=== PATIENT | female | born 1985 | race Two or more races ===

== ENCOUNTER → 2016-12-17 | Outpatient (REF) | payer BC | LOC: M SFHCWAGY 12:28 | PROVIDERS: ATTEND Nurse Practitioner Women's Health | DX: Z12.4 Encounter for screening for malignant neoplasm of cervix (principal) ==

== ENCOUNTER → 2016-12-29 | Outpatient (CLI) | payer BC ==
[~2016-12-29] VITALS: Ht 170.2 cm; Wt 79.7 kg
[~2016-12-29] MED LIST: LIDOCAINE 2% INJ 100 MG/5 ML SDV (FOR ANES.) As Ordered ONE; NS 1,000 ML IV ONE; PROPOFOL 200 MG/20 ML VIAL As Ordered ONE; RANI150T PO; SERT50TA PO; TRAZ50TA4 PO
--- NOTE | 2016-12-29 15:46 | ROOR ---
Patient Name: Lashonda Das Procedure Date: 12/29/2016 3:30 PM Date of : 1985 Age: 31 Room: [facility] Gender: Female Note Status: Finalized Procedure: Upper GI endoscopy Indications: Heartburn, Resolved on life style/habit change Providers: Rich NORIEGA MD Referring MD: Nay SANTANA NP Requesting Provider: Medicines: Monitored Anesthesia Care Complications: No immediate complications. Procedure: Pre-Anesthesia Assessment: - The heart rate, respiratory rate, oxygen saturations, blood pressure, adequacy of pulmonary ventilation, and response to care were monitored throughout the procedure. The Endoscope was introduced through the mouth, and advanced to the second part of duodenum. The upper GI endoscopy was accomplished without difficulty. The patient tolerated the procedure well. Findings: The esophagus was normal. The stomach was normal. The examined duodenum was normal. Impression: - Normal esophagus. - Normal stomach. - Normal examined duodenum. - No specimens collected. Recommendation: - Observe patient's clinical course. - Follow an antireflux regimen. Rich Noriega MD Rich NORIEGA MD 12/29/2016 3:45:54 PM This report has been signed electronically. Number of Addenda: 0 Note Initiated On: 12/29/2016 3:30 PM Estimated Blood Loss: Estimated blood loss: none.
--- NOTE | 2016-12-29 15:59 | ROOR ---
Patient Name: Lashonda Das Procedure Date: 12/29/2016 3:31 PM Date of : 1985 Age: 31 Room: [facility] Gender: Female Note Status: Finalized Procedure: Colonoscopy Indications: Screening in patient at increased risk: Colorectal cancer in father before age 60, (50) Providers: Rich NORIEGA MD Referring MD: Nay SANTANA NP Requesting Provider: Medicines: Monitored Anesthesia Care Complications: No immediate complications. Procedure: Pre-Anesthesia Assessment: - The heart rate, respiratory rate, oxygen saturations, blood pressure, adequacy of pulmonary ventilation, and response to care were monitored throughout the procedure. The Colonoscope was introduced through the anus and advanced to 4 cm into the ileum. The colonoscopy was performed without difficulty. The patient tolerated the procedure well. The quality of the bowel preparation was good. Findings: The perianal and digital rectal examinations were normal. The colon (entire examined portion) appeared normal. The terminal ileum appeared normal. Impression: - The entire colon is normal. - The examined portion of the ileum was normal. - No specimens collected. Recommendation: - Repeat colonoscopy in 5 years for screening purposes. Rich Noriega MD Rich NORIEGA MD 12/29/2016 3:59:09 PM This report has been signed electronically. Number of Addenda: 0 Note Initiated On: 12/29/2016 3:31 PM Estimated Blood Loss: Estimated blood loss: none.
[2016-12-29 16:25] VITALS: BP 114/75
== END | disposition home or self-care (01) ==
LOC: M OPP 13:55
PROVIDERS: ATTEND Internal Medicine Gastroenterology
DX: Z12.11 Encounter for screening for malignant neoplasm of colon (principal); Z80.0 Family history of malignant neoplasm of digestive organs; R12 Heartburn; F32.9 Major depressive disorder, single episode, unspecified; G43.909 Migraine, unspecified, not intractable, without status migrainosus; K21.9 Gastro-esophageal reflux disease without esophagitis; Z80.8 Family history of malignant neoplasm of other organs or systems; Z91.018 Allergy to other foods; Z79.899 Other long term (current) drug therapy
CPT/HCPCS: 43235; G0105

== ENCOUNTER → 2017-02-28 | Outpatient (REF) | payer BC ==
[~2017-02-28] MED LIST changes: -LIDOCAINE 2% INJ 100 MG/5 ML SDV (FOR ANES.) As Ordered ONE; -NS 1,000 ML IV ONE; -PROPOFOL 200 MG/20 ML VIAL As Ordered ONE; +TRAZ50TA11 PO; -TRAZ50TA4 PO
== END ==
LOC: M SFHCLERA 14:43
PROVIDERS: ATTEND Nurse Practitioner Family
DX: J02.9 Acute pharyngitis, unspecified (principal)

== ENCOUNTER → 2017-04-01 | Outpatient (REF) | payer BC ==
[2017-04-01 14:33] LABS: CONTROL LINE MONO INT CTR LINE PRESENT
== END ==
LOC: M LAB REF 13:35
PROVIDERS: ATTEND Nurse Practitioner Family
DX: J02.0 Streptococcal pharyngitis (principal)

== ENCOUNTER → 2017-10-29 | Outpatient (REF) | payer BC ==
[2017-10-29 21:30] LABS: CHLAMYDIA DNA AMPLIFICATION NEGATIVE (NEGATIVE); GC DNA AMPLIFICATION NEGATIVE (NEGATIVE)
[2017-10-30 10:52] LABS: HIV 1&2 SCREEN CENTAUR NEGATIVE (NEGATIVE)
== END ==
LOC: M LAB REF 17:06
DX: Z72.51 High risk heterosexual behavior (principal)

== ENCOUNTER → 2018-01-06 | Outpatient (CLI) | payer OTHER | LOC: M WUC 09:11 | DX: M25.542 Pain in joints of left hand (principal) | CPT/HCPCS: 73130 ==

== ENCOUNTER → 2018-04-23 | Outpatient (REF) | payer OTHER ==
[2018-04-23 22:30] LABS: CHLAMYDIA DNA AMPLIFICATION NEGATIVE (NEGATIVE); GC DNA AMPLIFICATION NEGATIVE (NEGATIVE)
== END ==
LOC: M SFHCWAGY 16:58
DX: Z11.3 Encounter for screening for infections with a predominantly sexual mode of transmission (principal)

== ENCOUNTER → 2018-04-23 | Outpatient (REF) | payer OTHER | LOC: M SFHCWAGY 16:00 | DX: Z12.4 Encounter for screening for malignant neoplasm of cervix (principal); Z11.3 Encounter for screening for infections with a predominantly sexual mode of transmission ==

== ENCOUNTER → 2018-07-08 | Outpatient (REF) | payer OTHER ==
[2018-07-08 14:44] LABS: CHLAMYDIA DNA AMPLIFICATION NEGATIVE (NEGATIVE); GC DNA AMPLIFICATION NEGATIVE (NEGATIVE)
== END ==
LOC: M LAB REF 12:04
DX: R31.9 Hematuria, unspecified (principal); N76.0 Acute vaginitis
CPT/HCPCS: 87205

== ENCOUNTER → 2020-06-22 | Outpatient (REF) | payer OTHER ==
[~2020-06-22] MED LIST changes: +SERT-141 PO; -SERT50TA PO; +TRAZ-252 PO; -TRAZ50TA11 PO
== END ==
LOC: M SFHCWAGY 17:08
PROVIDERS: ATTEND Nurse Practitioner Women's Health
DX: Z12.4 Encounter for screening for malignant neoplasm of cervix (principal); Z01.419 Encounter for gynecological examination (general) (routine) without abnormal findings

== ENCOUNTER → 2020-07-12 | Outpatient (CLI) | payer OTHER ==
--- NOTE | 2020-07-24 09:52 | REP ---
INDICATION: Z31.69/Z31.9 INFERTILITY MGMT. Repeat dictation. This study was acquired on 12 July 2020 and is presented to me for repeat dictation on 24 July 2020. COMPARISON: None. TECHNIQUE: Transabdominal and transvaginal scanning were performed. FINDINGS: Uterine dimensions are normal at 8.4 x 2.4 x 5.1 cm. Endometrial echo is 0.3 cm thick and centrally placed. No free fluid is seen in the cul-de-sac. Visualized bladder zayas are smooth. Small nabothian cysts are present. The right ovary has dimensions of 3.1 x 2.1 x 3.1 cm. It's Doppler flow is normal with a resistive index of 0.47. There is a complex heterogeneous and hyperechoic process in the left adnexa. Little normal ovarian tissue is seen. Possible dermoid. The complex process in the left adnexa measures 5.8 x 4.8 x 3.3 cm. Urinary bladder zayas are smooth on transabdominal imaging. Calculated bladder volume 501 mL. IMPRESSION: Complex process in the left ovary possible dermoid cyst. Very little normal appearing ovarian tissue seen. Recommend confirmation and further evaluation with pelvic MRI study. Unremarkable uterus and right ovary.. <Electronically signed by Daniel Zhang > 07/24/20 [id number]
== END ==
LOC: M WHC 14:56
PROVIDERS: ATTEND Nurse Practitioner Women's Health
DX: Z31.69 Encounter for other general counseling and advice on procreation (principal)

== ENCOUNTER → 2020-08-06 | Outpatient (CLI) | payer OTHER ==
[~2020-08-06] MED LIST changes: +PROHANCE 279.3MG/ML 15ML VIAL As Ordered ONE
--- NOTE | 2020-08-07 08:23 | REP ---
INDICATION: ADNEXAL MASS. Possible dermoid cyst left ovary on recent sonography. COMPARISON: Comparison pelvic sonography July 12, 2020. TECHNIQUE: Using a phased array surface coil, small fliyh-zd-ziei imaging was acquired using T2 weighted scans in the axial, coronal, and sagittal imaging planes. Small wbhhw-xu-jqab diffusion-weighted sequences are acquired. Small ocnuu-se-drhx axial T1 weighted scans are acquired dynamically before and after the intravenous administration of 15 mL of ProHance. Imaging is reviewed using the [employer] computer-aided detection system. FINDINGS: There is a heterogeneous mass in the left adnexa measuring 3.9 x 5.3 x 4.6 cm in overall dimension. This contains areas of low T1 and high T1 signal intensity. The high T1 signal intensity areas are suppressed on fat suppression images consistent with fat content. There are linear low T1 low T2 signal intensity components. The lesion has well-defined margin or wall. The wall of the cyst enhances in a thin linear fashion. There is some internal linear enhancement as well. No other abnormal contrast enhancement is visible. There is some normal ovarian tissue visualized anterior to the left ovarian lesion. The right ovary has a normal appearance. There is no evidence of free fluid. Uterus is normal in size. There are small nabothian cysts in the cervix. Endometrium is unremarkable. No pelvic adenopathy is seen. IMPRESSION: 5.3 cm dermoid cyst left ovary. Otherwise negative. <Electronically signed by Daniel Zhang > 08/07/20 0832
== END ==
LOC: M RAD 17:34
PROVIDERS: ATTEND Nurse Practitioner Women's Health
DX: N83.202 Unspecified ovarian cyst, left side (principal); N94.89 Other specified conditions associated with female genital organs and menstrual cycle
CPT/HCPCS: 72197; A9576

== ENCOUNTER → 2020-09-18 | Outpatient (REF) | payer OTHER ==
[~2020-09-18] MED LIST changes: -PROHANCE 279.3MG/ML 15ML VIAL As Ordered ONE
[2020-09-18 15:57] LABS: HEMOGLOBIN A1c 4.9 %
[2020-09-18 16:03] LABS: FREE THYROXINE INDEX 2.1 % (1.3-4.8); HCG, SERUM QUANTITATIVE < 1.0 MIU/ML; LDH LACTATE DEHYDROGENASE 163 U/L (84-246); T UPTAKE 29 % (30-39); THYROXINE (T4) 7.1 UG/DL (4.5-12.0)
[2020-09-18 16:06] LABS: ESTRADIOL 24.8 PG/ML; LUTEINIZING HORMONE 8.7 mIU/mL
[2020-09-18 16:07] LABS: FOLLICLE STIMULATING HORMONE 8.1 mIU/mL
== END ==
LOC: M PLALAB 13:46
PROVIDERS: ATTEND Obstetrics & Gynecology
DX: N94.89 Other specified conditions associated with female genital organs and menstrual cycle (principal); N97.9 Female infertility, unspecified

== ENCOUNTER → 2020-09-25 | Outpatient (CLI) | payer OTHER ==
[~2020-09-25] MED LIST changes: +ISOVUE-300 61% 50ML VIAL As Ordered ONE; +ISOVUE-370 76% 100ML VIAL As Ordered ONE
--- NOTE | 2020-09-25 16:57 | REP ---
INDICATION: INFERTILITY. COMPARISON: None. TECHNIQUE: The endometrium was cannulated and contrast was injected by the attending shell reprint operator Dr. Ramirez. Fluoroscopic spot films were acquired by [facility], under the direct supervision of Dr. Zhang. Images reviewed prior with Dr. Zhang to dictation. FINDINGS: Fluoroscopy spot radiographs document filling of a normal endometrial cavity. There is normal isthmic and ampullary fallopian tube opacification, and bilateral tubal patency was documented. IMPRESSION: Normal hysterosalpingogram with bilateral tubal patency documented. 0.4 minutes of fluoroscopy time was utilized for this procedure. Some fluoroscopic images are performed with last image hold technology. These images require no additional radiation. <Electronically signed by Sarah Botello > 09/25/20 1644 <Electronically signed by Daniel Zhang > 09/25/20 [id number]
== END ==
LOC: M RADPRO 11:34
PROVIDERS: ATTEND Obstetrics & Gynecology
DX: N83.202 Unspecified ovarian cyst, left side (principal); Z32.02 Encounter for pregnancy test, result negative; N97.9 Female infertility, unspecified
CPT/HCPCS: 58340; 74740; Q9967

== ENCOUNTER → 2020-10-04 | Outpatient (CLI) | payer OTHER ==
[~2020-10-04] MED LIST changes: -ISOVUE-300 61% 50ML VIAL As Ordered ONE; -ISOVUE-370 76% 100ML VIAL As Ordered ONE
--- NOTE | 2020-10-04 09:14 | REP ---
INDICATION: N83.202 LT OVARIAN CYST. COMPARISON: MR 08/06/2020, ultrasound 07/12/2020 TECHNIQUE: transabdominal and endovaginal probes utilized. FINDINGS: Bladder measures a 10.1 x 6.5 by 9 cm. Uterus is anteverted and measures 7.7 x 3.2 x 4.9 cm and is homogeneous in echotexture of its myometrium. There is a central endometrial stripe with a thickness of 5.9 mm. No uterine mass or contour abnormality. The right ovary is 3.6 x 2.4 x 2.3 cm. Within it is a dominant follicle of 1.4 x 1.2 x 1 cm. This has slightly irregular margins that may reflect collapsing follicle. There are other subcentimeter follicles evident. No adjacent free fluid. Normal color flow into the right ovary with normal Doppler tracing. The left ovary is enlarged at 6.3 x 3.8 x 4.5 cm. A small residual of a normal ovarian tissue seen with the mixed echogenic focus with hyperechoic areas and shadowing also noted with this area mass measuring 5.2 x 3.5 x 4.5 cm. There is no adjacent free fluid. Blood flow to the ovary maintained on color imaging. IMPRESSION: 1. Complex mostly fatty mass 5.2 x 3.5 x 4.5 cm left adnexa consistent with a dermoid cyst in the left ovary. No adjacent free fluid. Blood flow seen to the ovary and mass. 2. Dominant follicle right ovary 1.4 x 1.2 cm with slightly irregular contour suggesting involution. 3. Uterus endometrial stripe unremarkable. No pelvic or adnexal free fluid. <Electronically signed by Home Berkowitz > 10/04/20 0900
== END ==
LOC: M WHC 06:33
PROVIDERS: ATTEND Obstetrics & Gynecology
DX: N83.202 Unspecified ovarian cyst, left side (principal)

== ENCOUNTER → 2021-06-25 | Outpatient (REF) | payer OTHER | LOC: M SFHCWAGY 13:10 | PROVIDERS: ATTEND Nurse Practitioner Women's Health | DX: Z12.4 Encounter for screening for malignant neoplasm of cervix (principal); Z01.419 Encounter for gynecological examination (general) (routine) without abnormal findings ==

== ENCOUNTER → 2021-07-24 | Outpatient (REF) | LOC: M LABSMTC 13:06 | PROVIDERS: ATTEND Pediatrics | DX: Z20.828 Contact with and (suspected) exposure to other viral communicable diseases (principal) ==

== ENCOUNTER → 2021-10-30 | Outpatient (CLI) | payer OTHER ==
[2021-10-30 11:50] LABS: HEMATOCRIT 38.9 % (36.0-47.0); HEMOGLOBIN 13.4 g/dl (12.0-15.5); MEAN CORPUSCULAR HGB CONC 34.4 g/dl (32.0-36.5); PLATELET COUNT, AUTOMATED 344 10^3/uL (150-450); RED BLOOD COUNT 4.32 10^6/uL (4.00-5.40); WHITE BLOOD COUNT 11.6 10^3/uL (4.0-10.0)
[2021-10-30 12:59] LABS: HEPATITIS C VIRUS ABY INDEX 0.2 INDEX (<0.8); HIV 1&2 SCREEN CENTAUR NEGATIVE (NEGATIVE)
[2021-10-30 13:13] LABS: GC DNA AMPLIFICATION NEGATIVE (NEGATIVE)
== END ==
LOC: M PLALAB 08:44
PROVIDERS: ATTEND Specialist
DX: Z34.01 Encounter for supervision of normal first pregnancy, first trimester (principal); Z36.89 Encounter for other specified antenatal screening

== ENCOUNTER → 2021-12-23 | Outpatient (CLI) | payer OTHER | LOC: M WHC 07:10 | PROVIDERS: ATTEND Advanced Practice Midwife | DX: Z34.82 Encounter for supervision of other normal pregnancy, second trimester (principal); Z3A.19 19 weeks gestation of pregnancy ==

== ENCOUNTER → 2022-01-17 | Outpatient (CLI) | payer OTHER | LOC: M WHC 14:36 | PROVIDERS: ATTEND Obstetrics & Gynecology | DX: O34.82 Maternal care for other abnormalities of pelvic organs, second trimester (principal); Z3A.23 23 weeks gestation of pregnancy ==

== ENCOUNTER → 2022-02-06 | Outpatient (CLI) | payer OTHER ==
[2022-02-06 13:57] LABS: HEMATOCRIT 37.2 % (36.0-47.0); MEAN CORPUSCULAR HGB CONC 32.3 g/dl (32.0-36.5); PLATELET COUNT, AUTOMATED 316 10^3/uL (150-450); WHITE BLOOD COUNT 12.3 10^3/uL (4.0-10.0)
== END ==
LOC: M PLALAB 08:48
PROVIDERS: ATTEND Obstetrics & Gynecology
DX: Z34.92 Encounter for supervision of normal pregnancy, unspecified, second trimester (principal); Z36.89 Encounter for other specified antenatal screening

== ENCOUNTER → 2022-04-21 | Outpatient (REF) | payer OTHER | LOC: M SFHCWAGY 16:47 | PROVIDERS: ATTEND Advanced Practice Midwife | DX: Z36.85 Encounter for antenatal screening for Streptococcus B (principal) ==

== ENCOUNTER → 2022-04-29 | Outpatient (CLI) | payer OTHER | LOC: M WHC 09:59 | PROVIDERS: ATTEND Advanced Practice Midwife | DX: O26.849 Uterine size-date discrepancy, unspecified trimester (principal); Z3A.37 37 weeks gestation of pregnancy ==

== ENCOUNTER → 2022-07-24 | Outpatient (CLI) | payer OTHER ==
[~2022-07-24] MED LIST changes: +ACET-683 PO; +IBUP-1022 PO; +PRENTAB9 PO
== END ==
LOC: M WHC 12:32
PROVIDERS: ATTEND Obstetrics & Gynecology
DX: D27.1 Benign neoplasm of left ovary (principal); N88.8 Other specified noninflammatory disorders of cervix uteri

== ENCOUNTER → 2022-10-20 | Outpatient (REF) | payer OTHER | LOC: M PLALAB 16:17 | PROVIDERS: ATTEND Obstetrics & Gynecology | DX: Z01.419 Encounter for gynecological examination (general) (routine) without abnormal findings (principal) | CPT/HCPCS: 87624; G0123 ==

== ENCOUNTER → 2023-03-02 | Outpatient (REF) | payer OTHER | LOC: M PLALAB 11:15 | PROVIDERS: ATTEND Obstetrics & Gynecology | DX: Z53.9 Procedure and treatment not carried out, unspecified reason (principal) ==

== ENCOUNTER → 2023-03-02 | Outpatient (CLI) | payer OTHER ==
[2023-03-02 15:41] LABS: HEMATOCRIT 38.3 % (36.0-47.0); HEMOGLOBIN 13.3 g/dl (12.0-15.5); MEAN CORPUSCULAR HEMOGLOBIN 31.7 pg (27.0-33.0); MEAN CORPUSCULAR HGB CONC 34.7 g/dl (32.0-36.5); MEAN CORPUSCULAR VOLUME 91.2 fl (80.0-96.0); PLATELET COUNT, AUTOMATED 289 10^3/uL (150-450); WHITE BLOOD COUNT 12.2 10^3/uL (4.0-10.0)
[2023-03-02 16:34] LABS: HIV 1&2 SCREEN NEGATIVE (NEGATIVE)
[2023-03-02 16:42] LABS: HEPATITIS C VIRUS ABY INDEX 0.08 INDEX (<0.8)
[2023-03-02 17:18] LABS: GC DNA AMPLIFICATION NEGATIVE (NEGATIVE)
== END ==
LOC: M PLALAB 11:49
PROVIDERS: ATTEND Obstetrics & Gynecology
DX: Z36.9 Encounter for antenatal screening, unspecified (principal)

== ENCOUNTER → 2023-04-27 | Outpatient (CLI) | payer OTHER | LOC: M WHC 14:26 | PROVIDERS: ATTEND Obstetrics & Gynecology | DX: Z34.92 Encounter for supervision of normal pregnancy, unspecified, second trimester (principal); Z3A.20 20 weeks gestation of pregnancy ==

== ENCOUNTER → 2023-05-14 | Outpatient (CLI) | payer OTHER | LOC: M WHC 10:04 | PROVIDERS: ATTEND Obstetrics & Gynecology | DX: Z36.89 Encounter for other specified antenatal screening (principal) ==

== ENCOUNTER → 2023-06-03 | Outpatient (CLI) | payer OTHER ==
[2023-06-03 17:52] LABS: HEMATOCRIT 33.8 % (36.0-47.0); HEMOGLOBIN 11.4 g/dl (12.0-15.5); MEAN CORPUSCULAR HEMOGLOBIN 31.3 pg (27.0-33.0); MEAN CORPUSCULAR HGB CONC 33.7 g/dl (32.0-36.5); MEAN CORPUSCULAR VOLUME 92.9 fl (80.0-96.0); PLATELET COUNT, AUTOMATED 263 10^3/uL (150-450); RED BLOOD COUNT 3.64 10^6/uL (4.00-5.40); WHITE BLOOD COUNT 14.9 10^3/uL (4.0-10.0)
[2023-06-03 20:20] LABS: GC DNA AMPLIFICATION NEGATIVE (NEGATIVE)
== END ==
LOC: M PLALAB 14:13
PROVIDERS: ATTEND Specialist
DX: Z34.82 Encounter for supervision of other normal pregnancy, second trimester (principal)

== ENCOUNTER → 2023-08-13 | Outpatient (REF) | payer OTHER | LOC: M SFHCWAGY 17:02 | PROVIDERS: ATTEND Obstetrics & Gynecology | DX: Z36.89 Encounter for other specified antenatal screening (principal); Z3A.36 36 weeks gestation of pregnancy ==

== ENCOUNTER 2023-09-01 19:23 | Inpatient (IN) | payer OTHER ==
[~2023-09-01] VITALS: Ht 170.2 cm; Wt 89.3 kg
[2023-09-01] VITALS (13 sets, daily range): BP systolic 95–138; BP diastolic 54–84
[2023-09-01] MEDS ORDERED: CALC500C15 PO (19:41)
[2023-09-01] MEDS ORDERED: HOME MED LIST COMPLETE! XX SCH (21:05)
[2023-09-01 22:15] LABS: HEMATOCRIT 34.3 % (36.0-47.0); HEMOGLOBIN 11.7 g/dl (12.0-15.5); MEAN CORPUSCULAR HEMOGLOBIN 29.7 pg (27.0-33.0); MEAN CORPUSCULAR HGB CONC 34.1 g/dl (32.0-36.5); MEAN CORPUSCULAR VOLUME 87.1 fl (80.0-96.0); PLATELET COUNT, AUTOMATED 284 10^3/uL (150-450); RED BLOOD COUNT 3.94 10^6/uL (4.00-5.40); WHITE BLOOD COUNT 16.5 10^3/uL (4.0-10.0)
[2023-09-01] MEDS ORDERED: LR 500 ML IV PRN (22:20)
[2023-09-01] MEDS ORDERED: ONDANSETRON 4MG 2ML VIAL IV PRN (22:20)
[2023-09-01] MEDS ORDERED: NALOXONE INJ 0.4MG/1ML VIAL IV PRN (22:20)
[2023-09-01] MEDS ORDERED: EPIDURAL/PCA KEYS XX PRN (22:20)
[2023-09-01] MEDS ORDERED: FENTANYL/ROPIVACAINE/NACL BAG 100 ML EPIDURAL SCH (22:20)
[2023-09-01] MEDS ORDERED: diphenhydrAMINE 50MG/ML VIAL IV PRN (22:20)
[2023-09-01] MEDS ORDERED: LACTATED RINGER'S 1000 ML IV STA (22:23)
[2023-09-01] MEDS: LR 1,000 ML IV SCH (22:56)
[2023-09-01] MEDS: ePHEDrine SULFATE 25 MG/5 ML(5MG/ML) SYRINGE IVP PRN ×2 (23:24→23:29)
[2023-09-02] VITALS (21 sets, daily range): BP systolic 90–120; BP diastolic 50–70; O2SAT 97
[2023-09-02] MEDS ORDERED: TRANEXAMIC ACID INJection 1,000 MG in NS 100 ML IV PRN (00:05)
[2023-09-02] MEDS ORDERED: LIDOCAINE 1% MDV 20ML VIAL INFIL PRN (00:05)
[2023-09-02] MEDS ORDERED: OXYTOCIN DRIP 30 UNITS in IV 1 EA IV PRN (00:05)
[2023-09-02] MEDS ORDERED: METHYLERGONOVINE MALEATE 0.2MG/ML 1ML VIAL IM PRN (00:05)
[2023-09-02] MEDS: ePHEDrine SULFATE 25 MG/5 ML(5MG/ML) SYRINGE IVP PRN (00:25)
[2023-09-02] MEDS: LR 1,000 ML IV SCH (03:29)
[2023-09-02] MEDS ORDERED: OXYTOCIN DRIP 30 UNITS in IV 1 EA IV SCH (06:00)
[2023-09-02] MEDS ORDERED: RHOGAM 300MCG (1500IU) INJ IM SCH (06:00)
[2023-09-02] MEDS ORDERED: METHYLERGONOVINE MALEATE 0.2 MG TAB PO PRN (06:00)
[2023-09-02] MEDS ORDERED: MOM 30ML SUSPENSION UDC PO PRN (06:00)
[2023-09-02] MEDS ORDERED: DIBUCAINE 1% OINTMENT 30GM TOP PRN (06:00)
[2023-09-02] MEDS ORDERED: ACETAMINOPHEN 500 MG TAB PO PRN (06:00)
[2023-09-02] MEDS ORDERED: DOCUSATE SODIUM 100MG CAPSULE PO PRN (06:00)
[2023-09-02] MEDS ORDERED: ANUSOL HC CREAM 30GM TOP PRN (06:00)
[2023-09-02] MEDS ORDERED: ACETAMINOPHEN TAB 650MG DOSE (2X325MG) PO PRN (06:00)
[2023-09-02] MEDS ORDERED: IBUPROFEN 600MG TAB PO PRN (06:00)
[2023-09-02] MEDS: PRENATAL VITAMINS CHEWABLE TABLET PO SCH (09:51)
[2023-09-02] MEDS: IBUPROFEN 800 MG TAB PO PRN ×2 (10:15→18:29)
[2023-09-03 06:00] VITALS: BP 94/55
[2023-09-03] MEDS: IBUPROFEN 800 MG TAB PO PRN (08:19)
[2023-09-03] MEDS: PRENATAL VITAMINS CHEWABLE TABLET PO SCH (08:21)
[2023-09-03] MEDS ORDERED: COLA100C5 PO (11:41)
[2023-09-03] MEDS ORDERED: ACET-683 PO (11:41)
[2023-09-03] MEDS ORDERED: IBUP-1022 PO (11:41)
[2023-09-04] MEDS ORDERED: MEASLES,MUMPS,RUBELLA VACCINE INJ (MMR-II) SC.IMMUN ONE (09:00)
== END 2023-09-03 12:20 | disposition home or self-care (01) | DRG 807 ==
LOC: M LDO 19:23 → M LDI 21:42 → M OBS 09-02 08:46
PROVIDERS: ADMIT Obstetrics & Gynecology; ATTEND Obstetrics & Gynecology
PROC: 10E0XZZ Delivery of Products of Conception, External Approach (ICD-10-PCS; principal; 2023-09-02)
DX: O80 Encounter for full-term uncomplicated delivery (principal); Z37.0 Single live birth; Z3A.38 38 weeks gestation of pregnancy

== ENCOUNTER → 2023-12-18 | Outpatient (CLI) | payer OTHER ==
[~2023-12-18] MED LIST changes: +CALC500C15 PO; +COLA100C5 PO
== END ==
LOC: M WHC 08:48
PROVIDERS: ATTEND Obstetrics & Gynecology
DX: N83.202 Unspecified ovarian cyst, left side (principal)

== ENCOUNTER 2024-02-12 08:02 | Outpatient (RCR) | payer OTHER | END 2024-03-09 | LOC: M PT 08:02 | PROVIDERS: ATTEND Obstetrics & Gynecology | DX: M53.3 Sacrococcygeal disorders, not elsewhere classified (principal) ==

== ENCOUNTER → 2025-05-05 | Outpatient (CLI) | payer OTHER ==
[~2025-05-05] MED LIST changes: -IBUP-1022 PO; +IBUP600T42 PO
[2025-05-05 12:50] LABS: BASO # 0.1 10^3/uL (0.0-0.2); BASO % 0.8 % (0.0-1.0); EOS # 0.1 10^3/uL (0.0-0.5); EOS % 1.7 % (0.0-3.0); LYMPH # 2.6 10^3/uL (1.5-5.0); LYMPH % 33.2 % (24.0-44.0); MONO # 0.6 10^3/uL (0.0-0.8); MONO % 7.7 % (2.0-8.0); NEUTROPHILS # 4.3 10^3/uL (1.5-8.5); NEUTROPHILS % 55.8 % (36.0-66.0); PLATELET COUNT, AUTOMATED 336 10^3/uL (150-450)
[2025-05-05 13:26] LABS: ALT/SGPT 46 U/L (7.0-40); AST/SGOT 21 U/L (<34); CALCIUM LEVEL 8.9 MG/DL (8.5-10.1); CARBON DIOXIDE LEVEL 28 MMOL/L (20-31); CHLORIDE LEVEL 102 MMOL/L (98-107); CHOLESTEROL LEVEL 243 MG/DL (<200); CHOLESTEROL RISK RATIO 4.66 (<5); CREATININE FOR GFR 0.74 MG/DL (0.55-1.30); GLOMERULAR FILTRATION RATE > 90.0 (>60); LDL CHOLESTEROL 171.7 MG/DL (<100); NON-HDL-C 190.9 MG/DL; POTASSIUM SERUM 4.5 MMOL/L (3.5-5.1); SODIUM LEVEL 135 MMOL/L (136-145); TRIGLYCERIDES LEVEL 96 MG/DL (<150)
[2025-05-05 13:27] LABS: FREE T4 1.26 NG/DL (0.89-1.76)
== END ==
LOC: M PLALAB 07:46
PROVIDERS: ATTEND Nurse Practitioner Adult Health
DX: Z13.0 Encounter for screening for diseases of the blood and blood-forming organs and certain disorders involving the immune mechanism (principal); Z13.220 Encounter for screening for lipoid disorders; Z13.29 Encounter for screening for other suspected endocrine disorder